=== PATIENT | male | born 1960 | race Two or more races ===

== ENCOUNTER 2018-05-26 21:00 | Emergency (ER) | payer BC, OTHER ==
[2018-05-26 21:22] VITALS: BP 128/87; PULSE 72; TEMP 99.1; BMI 29.6
--- NOTE | 2018-05-26 21:57 | PDOC ---
History of Present Illness - General Chief Complaint: Pain Stated Complaint: PAIN Time Seen by Provider: 05/26/18 21:48 - History of Present Illness Initial Comments: 58-year-old male with past medical history significant for hypertension presents for evaluation of atraumatic onset of bilateral shoulder and arm pain as well as neck pain 5 days. There are no other associated symptoms 05/26/18 21:54 Past History - Past Medical History Allergies/Adverse Reactions: Allergies Allergy/AdvReac Type Severity Reaction Status Date / Time No Known Allergies Allergy Verified 05/26/18 21:21 Home Medications: Ambulatory Orders Cyclobenzaprine HCl [Flexeril 10 mg] 10 mg PO HS PRN #10 tablet 05/26/18 Methylprednisolone [Medrol Dose Liu] 4 mg PO ASDIR #21 tablet 05/26/18 Valsartan 320 mg PO ASDIR 05/26/18 COPD: No - Immunization History Immunization Up to Date: Yes - Suicide/Smoking/Psychosocial Hx Smoking History: Never smoked Have you smoked in the past 12 months: No Number of Cigarettes Smoked Daily: 0 Cigars Per Day: 0 Information on smoking cessation initiated: No Hx Alcohol Use: No Drug/Substance Use Hx: No Substance Use Type: None Review of Systems - Review of Systems Musculoskeletal: Yes: See HPI, Joint Pain, Neck Pain All Other Systems: Reviewed and Negative *Physical Exam - Vital Signs Last Vital Signs Temp Pulse Resp BP Pulse Ox 99.1 F 72 17 128/87 97 05/26/18 21:19 05/26/18 21:19 05/26/18 21:19 05/26/18 21:19 05/26/18 21:19 - Physical Exam Comments: Cervical spine skin color and temperature are normal. Range of motion is slightly decreased. Range of motion is slightly painful. There is no midline tenderness mild paracervical musculature spasm and tenderness. 5 out of 5 strength in bilateral upper extremities without any gross sensorimotor deficits. He has Spurling maneuver which is positive bilaterally. Bilateral shoulders skin color and temperature are normal range of motion is full with pain at terminal flexion and abduction. No evidence of instability 5 out of 5 strength to be spinatus isolation internal and external rotation. Mildly positive impingement maneuvers. He has no gross sensorimotor deficits is neurovascularly intact 05/26/18 21:55 Medical Decision Making - Medical Decision Making I will treat this cervical radiculopathy with a Medrol Dosepak and a muscle relaxer with spine surgery follow-up 05/26/18 21:56 *DC/Admit/Observation/Transfer Diagnosis at time of Disposition: Cervical radiculopathy - Discharge Dispostion Disposition: HOME Condition at time of disposition: Stable Decision to Admit order: No - Prescriptions Prescriptions: Cyclobenzaprine HCl [Flexeril 10 mg] 10 mg PO HS PRN #10 tablet PRN Reason: Muscle Spasms Methylprednisolone [Medrol Dose Liu] 4 mg PO ASDIR #21 tablet - Referrals Referrals: ON STAFF,NOT [Primary Care Provider] - Tavo Storey MD [Staff Physician] - - Patient Instructions Printed Discharge Instructions: DI for Cervical Radiculopathy Additional Instructions: Into the emergency room should symptoms worsen or go unresolved. Please follow- up with your primary care physician as well as spine surgery in 1-2 days for further evaluation and treatment options. - Post Discharge Activity
== END 2018-05-26 22:05 | disposition home or self-care (01) ==
LOC: JERFT 21:00
DX: M54.12 Radiculopathy, cervical region (principal); I10 Essential (primary) hypertension
CPT/HCPCS: 99281-25